=== PATIENT | female | born 1955 | race Caucasian/White ===

== ENCOUNTER 2022-05-23 16:45 | Emergency (ER) | payer BC, SELFPAY ==
[2022-05-23 17:00] VITALS: BP 127/93; PULSE 83; RESP 18; TEMP 36.8; O2SAT 97
--- NOTE | 2022-05-23 17:27 | ED_ITS ---
HPI - General Adult General Chief complaint: Eye Problems Stated complaint: Pain in the eyes, yellow discharge, blurry vision Time Seen by Provider: 05/23/22 17:03 Source: patient Mode of arrival: ambulatory Limitations: no limitations History of Present Illness HPI narrative: 66-year-old female presents to the emergency department with tenderness and bilateral purulent drainage from the eyes for the past day. Symptoms are worsening. She now notes some mild cloudiness in her vision. No foreign body sensation. No fever. Symptoms started with a typical URI, runny nose and mild cough 4 days ago. Started having some mild watering and slight itching of both eyes last night, purulent drainage started this morning seems to be worsening. She did try some sterile water mixed with honey which is a treatment I had not previously heard of and did not improve her symptoms. She also tried some Visine with no improvement. She has had some mild tenderness in the upper molars and some nasal drainage but no severe symptoms. No neck pain, no dyspnea, no ear pain. No prior history of eye surgeries. She does not wear contacts. No prior history of similar symptoms. Past medical history she states is benign. No major long-term health problems. No long-term prescriptions. Denies allergies. ROS is notable for no other generalized, HEENT, respiratory, skin or GI changes. Related Data Previous Rx's Medication Instructions Recorded bacitracin-polymyxin B 500 0.5 inch ophthalmic (eye) Q3H 10 05/23/22 unit-10,000 unit/gram eye ointment days #3.5 grams Allergies Allergy/AdvReac Type Severity Reaction Status Date / Time No Known Drug Allergies Allergy Verified 05/23/22 17:03 Exam Const: Vital Signs, click to edit/add: Vital Signs - 24 hr 05/23/22 17:00 Temperature 98.2 F Pulse Rate [Right Pulse Oximeter] 83 Respiratory Rate 18 Blood Pressure [Ri ght Upper Arm] 127/93 H Pulse Oximetry 97 Oxygen Delivery Me thod Room Air Documenting provider has reviewed patient's vital signs: yes Common normals: no apparent distress General appearance: cooperative, comfortable a nd well kempt HENMT: Common normals: normocephalic and TM's normal bilaterally Head and scalp: normocephalic Face and sinus: normal facial exam Tympanic membrane: TM's normal bilaterally Mouth: oral and palatal mucosa normal Throat: posterior oropharynx normal Other: Nose with very mild clear mucus rhinorrhea. Eye: Other: Bilateral swollen lids and conjunctiva. Bilateral mucopurulent drainage from medial canthus. Slight swelling of each medial canthus. Sclera are slightly injected pupils and iris are normal. No foreign body visualized. Neck & C-Spine: Common normals: full ROM and no lymphadenopathy Resp: Common normals: normal respiratory effort, no use of accessory muscles and clear to auscultation bilaterally Effort & inspection: able to speak in complete sentences Auscultation: clear to auscultation bilaterally Cardio: Common normals: regular rhythm, S1 normal heart sound, S2 normal heart sound and no murmurs Rhythm: regular rhythm Heart sounds: S1 normal and S2 normal Psych: Appearance: well kempt Mood and affect: euthymic mood Insight: insight good Judgement: judgment good Skin: Common normals: no rashes or lesions noted General skin exam: no rashes or lesions noted Course Vital Signs Vital signs: Initial Vital Signs Temperature 98.2 F 05/23/22 17:00 Temperature Source Temporal Artery Scan 05/23/22 17:00 Pulse Rate 83 05/23/22 17:00 Respiratory Rate 18 05/23/22 17:00 Blood Pressure 127/93 H 05/23/22 17:00 Blood Pressure Mean 104 05/23/22 17:00 Blood Pressure Position Sitting 05/23/22 17:00 Pulse Oximetry 97 05/23/22 17:00 Oxygen Delivery Method Room Air 05/23/22 17:00 Vital Signs Temperature 98.2 F 05/23/22 17:00 Pulse Rate 83 05/23/22 17:00 Respiratory Rate 18 05/23/22 17:00 Blood Pressure 127/93 H 05/23/22 17:00 Pulse Oximetry 97 05/23/22 17:00 Oxygen Delivery Method Room Air 05/23/22 17:00 Temperature 98.2 F 05/23/22 17:00 Pulse Rate 83 05/23/22 17:00 Respiratory Rate 18 05/23/22 17:00 Blood Pressure 127/93 H 05/23/22 17:00 Pulse Oximetry 97 05/23/22 17:00 Oxygen Delivery Method Room Air 05/23/22 17:00 Medical Decision Making MDM Narrative Medical decision making narrative: Suspect bacterial conjunctivitis. 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 Encouraged good hand hygiene, recommend Polytrim eye ointment. Use discussed. If not markedly improving in 36 hours, contact eye doctor for reassessment. Alarm symptoms reviewed. Discharge Plan Discharge Clinical Impression: Bacterial conjunctivitis Patient Disposition: Home, Self-Care Condition: Stable Instructions: Conjunctivitis (ED) Additional Instructions: I suspect that this infection started as a virus, but it does appear as though this has become bacterial. I recommend that we start some antibiotic ointment. Apply this to both eyes every 3 hours while awake. Use for a minimum of 3 full days and for 24 hours after all of your symptoms have completely resolved. If you have not improved markedly with 5 days of use, please make a follow-up visit. If your vision no has not started to improve by Wednesday morning, please call [facility] for a same-day appointment. It is okay to continue nasal saline or any decongestants to help with your congestion. It is okay to use Tylenol and/or ibuprofen for tenderness. I have sent a prescription for your eye ointment to your pharmacy. Apply this every 3 hours while awake. You do not need to wake in the middle of the night to apply. Please pick this up and start right away. Activity Level: No Restrictions Discharge Diet: Regular Prescriptions: New bacitracin-polymyxin B 500-10,000 unit/gram ointment 0.5 inch ophthalmic (eye) Q3H 10 Days Qty: 3.5 1RF Rx Instructions: every 3 hours while awake. Stand Alone Forms: [employer] Info Instructions
== END 2022-05-23 18:00 | disposition home or self-care (01) ==
LOC: ED 17:35
PROVIDERS: Emergency Provider Family Medicine
DX: H10.023 Other mucopurulent conjunctivitis, bilateral (principal)
CPT/HCPCS: 99283